=== PATIENT | female | born 1975 | race Caucasian/White ===

== ENCOUNTER 2021-02-03 21:35 | Emergency (ER) | payer MEDICAID, SELFPAY ==
[2021-02-03 21:36] VITALS: BP 203/79; PULSE 112; RESP 20; TEMP 36; O2SAT 97; BMI 34.1
--- NOTE | 2021-02-03 22:06 | EKG12_ITS ---
Test Reason : DYSRHYTHMIA Blood Pressure : / mmHG Vent. Rate : 097 BPM Atrial Rate : 097 BPM P-R Int : 134 ms QRS Dur : 078 ms QT Int : 364 ms P-R-T Axes : 065 060 059 degrees QTc Int : 462 ms Normal sinus rhythm Normal ECG Confirmed by JOSE LUIS YS, LEXII ([id number]), editor publications BREONNA ROTHMAN ([id number]) on 02/05/2021 9:58:06 AM Referred By: PL Confirmed By:LEXII AMAYA MD
--- NOTE | 2021-02-03 22:10 | US_ITS ---
STUDY: VENOUS DOPPLER ULTRASOUND - BILATERAL LOWER EXTREMITIES REASON FOR EXAM: Female, 45 years old. By lateral lower extremity is SWELLING TECHNIQUE: Ultrasound evaluation of the deep vein system to include lujan-scale imaging and compression was performed. Lujan-scale imaging and Doppler sonographic evaluation, including duplex spectral analysis and qualitative color flow sonography, was performed. COMPARISON: None. FINDINGS: RIGHT LEG Common Femoral Vein: Normal compression, spontaneity and augmentation. Normal color Doppler. Common Femoral Vein/Greater Saphenous Junction: Normal compression, spontaneity and augmentation. Normal color Doppler. Deep Femoral Vein: Normal compression, spontaneity and augmentation. Normal color Doppler. Femoral Proximal: Normal compression, spontaneity and augmentation. Normal color Doppler. Femoral Middle: Normal compression, spontaneity and augmentation. Normal color Doppler. Femoral Distal: Normal compression, spontaneity and augmentation. Normal color Doppler. Popliteal Vein: Normal compression, spontaneity and augmentation. Normal color Doppler. Posterior Tibial Vein: Normal compression, spontaneity and augmentation. Normal color Doppler. Peroneal Vein: Normal compression, spontaneity and augmentation. Normal color Doppler. LEFT LEG Common Femoral Vein: Normal compression, spontaneity and augmentation. Normal color Doppler. Common Femoral Vein/Greater Saphenous Junction: Normal compression, spontaneity and augmentation. Normal color Doppler. Deep Femoral Vein: Normal compression, spontaneity and augmentation. Normal color Doppler. Femoral Proximal: Normal compression, spontaneity and augmentation. Normal color Doppler. Femoral Middle: Normal compression, spontaneity and augmentation. Normal color Doppler. Femoral Distal: Normal compression, spontaneity and augmentation. Normal color Doppler. Popliteal Vein: Normal compression, spontaneity and augmentation. Normal color Doppler. Posterior Tibial Vein: Normal compression, spontaneity and augmentation. Normal color Doppler. Peroneal Vein: Normal compression, spontaneity and augmentation. Normal color Doppler. US/Venous Duplex Imag/Juan Extrem IMPRESSION: Normal venous Doppler ultrasound of the bilateral lower extremities. Electronically Signed: Srinivas Kimbrough MD at 23:12 EST Tel , Service support ,
--- NOTE | 2021-02-03 22:34 | EDS_ITS ---
HPI History of Present Illness Chief Complaint: Edema Informant: patient Narrative Narrative: Patient presents with complaints of bilateral feet swelling and weight gain. Patient states she had a divorce earlier this year. She has had about a 30 to 40 pound weight gain since May. She thinks some of that is just because she is feeling better and healthier. But she is concerned that she has had some swelling of both feet for about 5 days. She normally gets swelling like this during her menstrual cycle but it normally goes away in 2 to 3 days. It does not swell this much or last as long. Also, her last menstrual cycle was about 1-1/2 to 2 weeks ago so the swelling should be gone now. She has no dyspnea or cough. No fevers or chills. The swelling is equal. No change in urine output. Swelling does get a bit better if she keeps her feet up and is worse if she standing. She did have visiting family just recently at the start of this. She was on her feet more. They ate a lot of different foods but she states she did not eat a large amount of food or anything abnormal that she thinks could have caused this. No known salty foods that she ate differently. Denies chronic medical conditions No medications No allergies No recent surgeries Lives independently. No drug use. [facility] Medical History (Updated 02/03/21 @ 23:[address] Edilson Castillo MD) ADHD Home Medications dextroamphetamine-amphetamine 30 mg PO DAILY 02/03/21 [History Last Taken Unknown] Allergy/AdvReac Type Severity Reaction Status Date / Time No Known Allergies Allergy Verified 02/03/21 21:42 Social History Smoking Status: Current every day smoker tobacco type: cigarettes ROS ROS ED Constitutional Constitutional ED: Denies chills or fever(s) Eyes Eyes: Denies change in vision ENT ENT ED: Denies rhinorrhea or sore throat Cardiovascular Cardiovascular: Denies chest pain, orthopnea, palpitations or paroxysmal nocturnal dyspnea Respiratory/Chest Respiratory/Chest: Denies cough, dyspnea, dyspnea on exertion, orthopnea or paroxysmal nocturnal dyspnea Gastrointestinal Gastrointestinal: Denies abdominal pain, nausea or vomiting Genitourinary Genitourinary ED: Denies urinary frequency Musculoskeletal Musculoskeletal: Denies arthralgias or myalgias Integumentary Denies rash Neurologic Neurologic: Denies headache(s), paresthesias or weakness Endocrine Endocrinology: Denies polydipsia or polyuria Allergic/Immunologic Allergic/Immunologic ED: Denies mouth swelling, tongue swelling or urticaria EXAM Physical Exam Const Vital Signs: 02/03/21 21:36 02/03/21 23:04 02/03/21 23:05 Temperature 96.8 F L Temperature Source Temporal Pulse Rate 112 H 99 Respiratory Rate 20 H 16 Respiratory Effort Normal Non-Labored Respiratory Pattern Normal Blood Pressure 203/79 H 127/99 H Blood Pressure Mean 120 108 Pulse Ox 97 100 Oxygen Delivery Method Room Air Room Air Positive well nourished, well developed and obese General Appearance ED: well developed and NAD; Negative for cyanotic, diaphore tic or pallor Nutritional Appearance: obese HEENT Reports moist mucous membranes Negative for trauma Eyes General Eye ED: Negative for pale conjunctiva Neck no JVD Chest Wall inspection of chest normal Resp normal respiratory effort and clear to auscultation bilaterally Effort and Inspection: Negative for pain with movement Auscultation: Negative for rales, rhonchi or wheezes Cardio regular rate and regular rhythm GI normal to inspection, nondistended, normoactive bowel sounds and non-tender Palpation: soft Back/Spine no CVA tenderness Extremity Extremity Narrative: Patient does have some slight edema mostly on the dorsum of both feet. There is +1 very mild pitting edema on the dorsum of the feet. There is no pitting from the ankle above. There is no asymmetry. There is no erythema. No distended veins. Neuro Sensorium / Orientation: alert Psych mental status grossly normal Skin no rashes or lesions noted and no wounds General Skin Exam: Negative for jaundice or pallor Trauma: Negative for abrasion Wounds: Negative for wounds noted MDM MDM MDM Narrative Medical decision making narrative: Patient's electrolytes show no marked abnormalities. Renal function is normal. BNP is normal. Patient does have a slightly high white count. But she has no symptoms of infection. No fevers chills or sweats. She has no urinary symptoms. No cough. This will have to be followed. Certainly if she develops fevers or other symptoms she should return for evaluation. Her ultrasound was also negative for DVT. Patient is wondering if this might be related to menopause. She has noted irregularity of periods and slight changes in the edema over the last 6 months to a year. This is certainly possible. This may also be related to diet and activity. I recommended compression hose at a local pharmacy type store. If she develops redness fevers pains trouble breathing or other issues she should return. Lab Data Attestation: I reviewed the patient's lab results. Labs: Laboratory Results - last 24 hr 02/03/21 02/03/21 02/03/21 23:00 23:00 23:00 WBC 14.3 H RBC 4.32 Hgb 11.8 L Hct 36.4 L MCV 84.3 MCH 27.3 MCHC 32.4 RDW Std Deviation 48.0 H RDW Coeff of Surya 15.7 H Plt Count 557 H MPV 9.4 Immature Gran % (Auto) 1.300 H Neut % (Auto) 67.5 Lymph % (Auto) 18.9 L Chilton % (Auto) 8.8 Eos % (Auto) 2.9 Baso % (Auto) 0.6 Absolute Neuts (auto) 9.6 H Absolute Lymphs (auto) 2.70 Nucleated RBC % 0 Sodium 142 Potassium 4.1 Chloride 108 H Carbon Dioxide 28.0 Anion Gap 6 BUN 11 Creatinine 1.01 Estim Creat Clear Calc 56.80 Est GFR (MDRD) Af Amer 77 Est GFR (MDRD) Non-Af 63 BUN/Creatinine Ratio 10.9 Glucose 95 Calcium 8.8 B-Natriuretic Peptide 25.6 Radiography Diagnostic Testing: Clinical Impression(s) from Imaging Studies Venous Duplex 02/03/21 22:10 IMPRESSION: Normal venous Doppler ultrasound of the bilateral lower extremities. Electronically Signed: Srinivas Kimbrough MD at 23:12 EST Tel , Service support , EKG Initial EKG: Comments: EKG done for possible dysrhythmia with peripheral edema. EKG read by me shows a normal sinus rhythm with overall rate of 97. No ectopy. No acute ST elevation or depression. AL interval, QRS duration and QTc are normal. Discharge Plan Triage Chief Complaint: Edema ED Provider: Edilson Castillo Dx/Rx/DC Orders Clinical Impression: Bilateral leg edema, Weight gain Instructions: ED Lymphedema Prescriptions: No Action dextroamphetamine-amphetamine 30 mg capsule,extended release 24hr 30 mg PO DAILY RF: 0 Referrals: MARK RAMOS [Other] Donaldo Sands MD [STAFF PHYSICIAN] - 3-5 Days Disposition Disposition: Home, Self Care
[2021-02-03 23:04] VITALS: BP 127/99; PULSE 99; RESP 16; O2SAT 100
[2021-02-03 23:22] LABS: Anion Gap 6 (5-15); BUN 11 mg/dL (7-18); BUN/Creat Ratio 10.9 RATIO (10-20); Calcium,Total 8.8 mg/dL (8.5-10.1); Chloride 108 mmol/L (98-107); Creatinine, Serum 1.01 mg/dL (0.55-1.02); EST Glomerular Filtration Rate 63 mL/min (>60); Est Glom Filt Rate - Afr Amer 77 mL/min (>60); Glucose 95 mg/dL (74-106); Potassium 4.1 mmol/L (3.5-5.1); Sodium Level 142 mmol/L (136-145)
[2021-02-03 23:28] LABS: BNP,B-Type NATRIURETIC PEPTIDE 25.6 pg/mL (0-100)
[2021-02-03 23:31] LABS: Absolute Neutrophil Count 9.6 X10^3/uL (2.0-7.7); Basophil# 0.09 X10^3/uL; Basophil% 0.6 % (0-1); Eosinophil# 0.41 X10^3/uL; Eosinophils% 2.9 % (0-5); Hematocrit 36.4 % (37-47); Hemoglobin 11.8 g/dL (12.0-15.0); Lymphocyte % 18.9 % (19-41); Mean Corp Hgb Conc 32.4 g/dL (32-36); Mean Corpuscular Hgb 27.3 pg (27.0-32.0); Mean Corpuscular Volume 84.3 fL (81-99); Mean Platelet Vol. 9.4 fl (6.2-12.0); Monocyte# 1.26 X10^3/uL; Monocyte% 8.8 % (0-10); NRBC Flagged by Analyzer 0 % (0-5); Neutrophil # 9.64 X10^3/uL (2.7-7.7); Neutrophil % 67.5 % (47-70); Platelet Count 557 K/mm3 (150-450); RBC Distribution Width CV 15.7 % (11.6-14.6); Red Blood Count 4.32 M/mm3 (4.2-5.4); White Blood Count 14.3 K/mm3 (4.4-11.0)
== END 2021-02-04 00:06 | disposition home or self-care (01) ==
PROVIDERS: Emergency Provider Emergency Medicine
DX: M79.89 Other specified soft tissue disorders (principal); E66.9 Obesity, unspecified; F17.210 Nicotine dependence, cigarettes, uncomplicated; F90.9 Attention-deficit hyperactivity disorder, unspecified type; Z79.899 Other long term (current) drug therapy
CPT/HCPCS: 80048; 83880; 85025; 93005; 93970; 99283; A4216